=== PATIENT | female | born 1975 | race Caucasian/White ===

== ENCOUNTER → 2017-04-12 | Outpatient (CLI) | payer BC ==
[~2017-04-12] MED LIST: NIFEREX-15150 MG/CAP PO; PRENATAL1 TA1 PO
== END ==
LOC: COL.RAD 09:35
DX: R10.13 Epigastric pain (principal); R10.33 Periumbilical pain

== ENCOUNTER → 2017-04-29 | Outpatient (CLI) | payer BC | LOC: COL.RAD 04-20 10:12 | DX: R10.11 Right upper quadrant pain (principal) | CPT/HCPCS: A9537 ==

== ENCOUNTER → 2019-03-01 | Outpatient (CLI) | payer BC | LOC: MC.RAD 10:44 | DX: Z12.31 Encounter for screening mammogram for malignant neoplasm of breast (principal) ==